=== PATIENT | male | born 2000 | race Caucasian/White ===

== ENCOUNTER 2021-11-16 09:09 | Outpatient (REF) | payer OTHER, SELFPAY ==
[2021-11-16 11:44] LABS: Basophils Absolute Auto 0.1 X10*3/uL (0.0-0.2); Basophils Percent Auto 0.5 % (0-2); Eosinophils Absolute Auto 0.2 X10*3/uL (0.0-0.4); Eosinophils Percent Auto 2.1 % (0-4); Hematocrit 46.2 % (42.0-52.0); Hemoglobin 14.9 g/dl (14.0-18.0); Imm Gran Abs Auto 0.02 X10*3/uL (0.00-0.03); Imm Gran Pct Auto 0.2 % (0.0-0.4); Lymphocytes Percent Auto 55.7 % (20-40); MANUAL DIFF FLAG SCAN; Mean Corpuscular HGB Conc 32.3 g/dl (31.0-36.0); Mean Corpuscular Hemoglobin 28.6 pg (27.0-33.0); Mean Corpuscular Volume 88.7 fL (80.0-98.0); Mean Platelet Volume 12.4 fL (9.4-12.4); Monocytes Absolute Auto 0.7 X10*3/uL (0.1-1.2); Monocytes Percent Auto 6.5 % (2-11); Neutrophils Absolute Auto 3.8 x10*3/uL (2.0-8.3); Platelet Count 257 X10*3/uL (160-400); Red Blood Count 5.21 X10*6/uL (4.60-5.80); Red Cell Distribution Width 12.7 % (11.0-16.0); SCAN SMEAR FLAG 1; White Blood Count 10.7 X10*3/uL (4.8-10.8)
[2021-11-16 12:07] LABS: SLIDE REVIEW VERIFIED
[2021-11-16 12:16] LABS: TSH reflex Free T4 0.98 uIU/mL (0.32-4.0)
[2021-11-16 12:39] LABS: Alanine Aminotransferase 44 U/L (0-40); Albumin Level 4.6 g/dL (3.5-5.0); Alkaline Phosphatase 92 U/L (39-117); Anion Gap 14 (12-20); Aspartate Amino Transferase 22 U/L (5-37); Bilirubin Total 0.5 mg/dL (0.0-1.0); Blood Urea Nitrogen 12 mg/dL (9-16); Calcium 9.6 mg/dL (8.4-10.2); Carbon Dioxide 29 mmol/L (22-29); Chloride 102 mmol/L (96-108); Cholesterol 167 mg/dL; Estimated Glomerular Filt Rate > 60; Glucose Fasting 97 mg/dL (60-99); HDL Cholesterol 13 mg/dL; LDL Cholesterol Calculated 121 mg/dl; Potassium 4.1 mmol/L (3.3-5.1); Sodium 141 mmol/L (135-145); Total Protein 7.5 g/dL (6.5-8.0); Triglycerides 166 mg/dL
[2021-11-16 12:59] LABS: Folate 6.7 ng/mL (> or = 4.0); Vitamin B12 366 pg/mL (200-900)
== END 2021-11-16 09:10 | disposition home or self-care (01) ==
LOC: HO.WFDLDS 09:09
PROVIDERS: Visit Provider Family Medicine
DX: Z00.00 Encounter for general adult medical examination without abnormal findings (principal); E53.8 Deficiency of other specified B group vitamins
CPT/HCPCS: 36415; 80053; 80061; 82607; 82746; 84443; 85025

== ENCOUNTER → 2022-02-14 12:51 | Outpatient (BNVA) | payer OTHER, SELFPAY | PROVIDERS: PCP Family Medicine; Visit Provider Nurse Practitioner Family | DX: G47.33 Obstructive sleep apnea (adult) (pediatric) (principal); G40.909 Epilepsy, unspecified, not intractable, without status epilepticus; G47.9 Sleep disorder, unspecified | CPT/HCPCS: 99202 ==

== ENCOUNTER 2024-09-09 14:09 | Outpatient (AMB) | payer OTHER, SELFPAY ==
--- NOTE | 2024-09-09 14:30 | MHC.PC.OV ---
Vital Signs 09/09/24 14:32 Height 5 ft 2 in Weight 181 lb 2 oz BMI 33.1 BP 124/66 Blood Pressure Location Lt brachial Position Sitting Respiration 18 Pulse 130 H Pulse Source Pulse Oximeter Temp 98.4 F Temp Source Oral Pulse Oximetry (%) 97 Oxygen Delivery Method Room Air Intake Visit Reasons: f/u for hearing loss, elevated transaminase level Allergies No Known Allergies [No Known Allergies*] Allergy (Verified 09/09/24 14:31) Medication List - Last Reconciled 09/09/24 by Reddy Elizalde MD cetirizine (Zyrtec) 10 mg PO DAILY 30 days levetiracetam 1,000 mg (10 mL) PO BID Tobacco use date assessed: 12/07/21 Dental Screening Dental Screen Date: 11/15/22 HPI f/u for hearing loss, elevated transaminase level HPI Details 24 y/o male presents today with complaints of hearing changes. Hx of intellectual disability. They note hearing changes and they feel like pt is not able to hear them at times. They note he does have small canals. Heart rate today 130p. [facility] Surgical History H/O wisdom tooth extraction Family History Father Mental health disorder Social History Housing: Apartment Patient Tobacco Use Status: Never used Tobacco e-Cigarette/Vaping Use: Never Used Second Hand Smoke Exposure: Yes service: No Current occupational status: disabled Current occupational exposures/hazards: No Cognitive needs: No Hearing needs: Yes Vision needs: Yes Questionnaire PHQ-9 Over the last 2 weeks, how often have you been bothered by any of the following problems? 1. Little interest or pleasure in doing things: not at all 2. Feeling down, depressed, or hopeless: not at all 3. Trouble falling or staying asleep, or sleeping too much: several days 4. Feeling tired or having little energy: several days 5. Poor appetite or overeating: not at all 6. Feeling bad about yourself - or that you are a failure or have let yourself or your family down: not at all 7. Trouble concentrating on things, such as reading the newspaper or watching television: not at all 8. Moving or speaking so slowly that other people could have noticed. Or the opposite - being so fidgety or restless that you have been moving around a lot more than usual: not at all 9. Thoughts that you would be better off or of hurting yourself in some way: not at all Total score: 2 Depression Screening Interpretation: Negative Depression Screening Done: Yes 84786 - PHQ-9 Billing: Yes Source: Developed by Drs. Pablito Hackett, Lesly Elkins, Johan Wiggins and colleagues, with an educational licha from [employer]. Thrive Questionnaire Date Thrive assessed: 09/03/24 I am a: Patient What is your living situation today?: I have a steady place to live Within the past 12 months, did the food you bought not last and you didn't have the money to get more?: Never true Within the past 12 months, did you worry whether your food would run out before you got money to buy more?: Never true Do you have trouble paying for medicines?: No Do you have trouble getting transportation to medical appointments?: No Do you have trouble paying your heating and electricity bill?: No Do you have trouble taking care of your child, family member or friend?: No Do you have trouble with day-to-day activities such as bathing, preparing meals, shopping, managing finances, etc.?: Yes Are you currently unemployed and looking for a job?: Yes Are you interested in more education?: Yes Please select the resources that you would like help with: None Currently or been in a relationship where the following occur: No concerns reported THRIVE Score: 0 AUDIT C Alcohol Use Questionnaire (AUDIT-C) 1. How often do you have a drink containing alcohol?: Never 2. How many drinks containing alcohol do you have on a typical day when you are drinking?: 1 or 2 3. How often do you have six or more drinks on one occasion?: Never Total Score: 0 JASON-7 AMB Questionnaire JASON-7 Date JASON - 7 assessed: 09/09/24 Feeling nervous, anxious, or on edge: 1 = Several days Not being able to stop or control worryin = Several days Worrying too much about different things: 0 = Not at all Trouble relaxin = Several days Being so restless that it is hard to sit still: 0 = Not at all Becoming easily annoyed or irritable: 0 = Not at all Feeling afraid as if something awful might happen: 0 = Not at all Total JASON-7 score (0-4 normal; 5-9 mild; 10-14 moderate; 15-21 severe): 3 Source: Developed by Drs. Pablito Hackett, Lesly Elkins, Johan Wiggins and colleagues, with an educational licha from [employer]. JASON-7 Assessment Billing JASON-7 Assessment Tool: JASON-7 Assessment 44367 Review of Systems Const Denies chills, Denies fatigue, Denies fever(s), Denies headache(s) and Denies weakness ENT Denies dizziness and Denies headache(s) Card Denies chest pain, Denies lightheadedness, Denies dyspnea and Denies other (Palpitations) Resp Denies cough, Denies dyspnea, Denies wheezing and Denies other ( shortness of breath) Musc Denies numbness and Denies tingling Neuro Denies dizziness, Denies headache(s), Denies numbness, Denies tingling, Denies paresthesias and Denies weakness Psych Denies anxiety and Denies depression Endo Denies fatigue Aller/Immun Denies wheezing Physical exam (Primary Care) Vital Signs: Last Vital Signs Temp 98.4 F 09/09/24 14:32 Pulse 130 H 09/09/24 14:32 Resp 18 09/09/24 14:32 BP 124/66 09/09/24 14:32 Pulse Ox 97 09/09/24 14:32 Oxygen Delivery Method Room Air 09/09/24 14:32 BMI result Body Mass Index 33.1 Tobacco/Smoking Status: Tobacco use Status Tobacco use date assessed 12/07/21 09/09/24 14:31 Patient Tobacco Use Status Never used Tobacco 09/09/24 14:31 e-Cigarette/Vaping Use Never Used 09/09/24 14:31 PHQ-9: PHQ-9 Score PHQ-9: Total score 2 09/09/24 14:31 Depression Screening Interpretation: Negative Thrive Assessment: Date of Thrive Assessment Date Thrive assessed 09/03/24 09/09/24 14:31 Currently or been in a relationship where the following occur: No concerns reported Const General: no acute distress and well developed Nutritional Appearance: well nourished Orientation/consciousness: patient oriented x3 HENMT Head: Yes normocephalic and Yes atraumatic Eyes General: appearance normal, both eyes and all related structures Pupils: Equal, round and reactive pupils present EOM: EOMs intact bilaterally Resp Effort & Inspection: normal respiratory effort Auscultation: clear to auscultation bilaterally Cardio Rate: tachycardic Rhythm: regular rhythm Heart sounds: S1 normal heart sound present, S2 normal heart sound present, no gallops, no murmurs and no rubs Neuro General: patient oriented x3 and gait normal Cranial nerves: Yes Equal, round and reactive pupils present Psych Affect: normal affect Coding Level of Care Code Est Pt Level 4 (84107) Diagnoses Hearing loss H91.90 Tachycardia R00.0 Elevated alanine aminotransferase (ALT) level R74.01 Additional Codes JASON-7 Assessment Billing - JASON-7 Assessment Tool: JASON-7 Assessment 56941 ([id number]) PHQ-9 - 15753 - PHQ-9 Billing: Yes ([id number]) Assessment & Plan Assessment & Plan (1) Hearing loss: Code(s): H91.90 - Unspecified hearing loss, unspecified ear Category: Medical Plan: Worsening?hearing,?bilateral?ears Does?have?small?ear?canals?bilaterally Also?has?complaints?of?rhinitis?and?nasal?congestion?and?allergies. Strong cigarette?smoke?odor?with?mom?in?room - mom?says?that?she?smokes.??This?can?be?an?underlying?cause?for?upper?respiratory?inflammation?and?can cause?mild?serous?otitis?which?is?seen?on?his?exam. Encouraged?have?a?filtration?and?avoid?particulate?matter?in?air?such?as?from?smoking. Will?check?audiology?and?refer?to?ENT (2) Tachycardia: Code(s): R00.0 - Tachycardia, unspecified Category: Medical Plan: Heart rate is?elevated?in?130s Rhythm?is?regular EKG: ?Sinus?tachycardia,?115?beats?per?minute,?normal?axis,?no?hypertrophy,?no?ST-T-wave?changes Patient?appears?dry.??He?is?also?on?levetiracetam?may?be?causing?further?dehydration.??He?also?had?the?flu?recently, however?he?has?had?hernia?at?prior?visit?as?well. Increase?hydration Check?labs Will?follow-up?at?next?visit (3) Elevated alanine aminotransferase (ALT) level: Code(s): R74.01 - Elevation of levels of liver transaminase levels Category: Medical Plan: History?of?elevated?transaminase?level Rechecking?this?with?next?blood?draw Orders: Orders AMB EKG-In Office Today R00.0 - Tachycardia, unspecified Comprehensive Recluse. Panel Fast Today Z00.00 - Encounter for general adult medical examination without abnormal findings Complete Blood Count Auto Diff Today Z00.00 - Encounter for general adult medical examination without abnormal findings Microalbumin, Random (w Creat) Today I10 - Essential (primary) hypertension Lipid Panel Today Z00.00 - Encounter for general adult medical examination without abnormal findings TSH reflex Free T4 Today Z00.00 - Encounter for general adult medical examination without abnormal findings UA CC w/rflx Micro + Cult Today Z00.00 - Encounter for general adult medical examination without abnormal findings Referrals Audiology Referral H91.90 - Unspecified hearing loss, unspecified ear Ear/Nose/Throat Referral H91.90 - Unspecified hearing loss, unspecified ear
[2024-09-09 14:32] VITALS: BP 124/66; PULSE 130; RESP 18; TEMP 36.9; O2SAT 97; BMI 33.1
--- OUTSIDE RECORDS SUMMARY | 2024-09-09 16:21 | XMS_ITS | Encounter Summary ---
Author Organization [employer] Address [address] [place] [address] [address] [place] [address] Care Team Providers Care Director Of Land Acquisition Name Role Phone Unavailable Primary Care Provider Unavailabl e Reason for Visit * Reason Comments Med Change Request Encounter Details Date Type Department Care Team (Late st Contact Info) Description 08/25/2022 Refill [facility]ULT [facility] [address] [place] [address] Delbert Mustafa DDS [address] [place] [address] Social History Tobacco Use Types Packs/Day Years Used Date Smoking Tobacco: Never Assessed Sex and Gender Information Value Date Recorded Sex Assigned at Male 03/13/2022 10:39 AM EDT Legal Sex Male 10:39 AM EDT Gender Identity Choose not to disclose 10:39 AM EDT Sexual Orientation Choose not to disclose 2021 10:39 AM EDT COVID-19 Exposure Response Date Recorded In the last 10 days, have yo u been in contact with someone who was confirmed or suspected to have Coronavirus/COVID-19? No / Unsure 08/25/2022 11:27 AM EDT documented as of this encounter Miscellaneous Notes * Telephone Encounter - Delbert Mustafa DDS - 09/11/2022 3:58 PM EDT Approving, but needs appt for additional refills. documented in this encounter Plan of Treatment Not on file documented as of this encounter Visit Diagnoses Not on filedocumented in this encounter
--- OUTSIDE RECORDS SUMMARY | 2024-09-09 16:21 | XMS_ITS | Clinical Summary ---
Author Organization [employer] Address [address] [place] [address] [address] [place] [address] Care Team Providers Care [employer] Name Role Phone Unavailable Primary Care Provider Unavailabl e Allergies No known active allergies Medications levETIRAcetam (Keppra) 100 MG/ML solution 9 mL 2 times daily. 09/07/2011 Active Social History Tobacco Use Types Packs/Day Years Used Date Smoking Tobacco: Never Assessed Sex and Gender Information Value Date Recorded Sex Assigned at Male 03/13/2022 10:39 AM EDT Legal Sex Male 10:39 AM EDT Gender Identity Choose not to disclose 10:39 AM EDT Sexual Orientation Choose not to disclose 2021 10:39 AM EDT Plan of Treatment Health Maintenance Due Date Last Done Comments Chlamydia and Gonorrhea Screening 2001 Dental Oral Exam 2001 Dental Prophylaxis 2001 Dental X-Ray: Full Mouth 2001 Depression Screening 2001 HIV Screening 2001 SDOH Screening 2001 Alcohol/Substance Use Screening 2013 Tobacco Screening 2013 HPV Vaccines (2 - 2-dose series) 03/10/2015 09/08/2014 Hepatitis A Vaccines (2 of 2 - 2-dose series) 03/10/2015 09/08/2014 Family Planning (PISQ) 2016 Hepatitis C Screening 07/16/2019 Hepatitis B Vaccines (1 of 3 - 19+ 3-dose series) 2020 Pneumococcal Vaccine: Pediatrics (0 to 5 Years) and At-Risk Patients (6 to 49) Years) (1 of 2 - PCV) 2020 10/21/2002, 01/20/2002, 2001, Additional history exists DTaP/Tdap/Td Vaccines (7 - Td or Tdap) 08/19/2022 08/19/2012, 08/02/2005, 01/22/2003, Additional history exists Dental X-Ray: Bitewings 08/27/2023 08/25/2022 COVID-19 Vaccine ( season) 2024 Influenza Vaccine (#1) 2024 3, 07/03/2012, 01/11/2011 Zoster Vaccines (1 of 2) 07/16/2051 RSV Patients and Patients Aged 60 years or older (1 - 1-dose 75+ series) 2076 Meningococcal Vaccine Aged Out 08/19/2012 No skyler lj eligible based on patient's age to complete this topic HIB Vaccines Aged Out No longer eligi ble based on patient's age to complete this topic IPV Vaccines Aged Out No longer eligi ble based on patient's age to complete this topic RSV under 20 months Aged Out No longe r eligible based on patient's age to complete this topic Rotavirus Vaccines Aged Out No longer eligible based on patient's age to complete this topic Procedures Procedure Name Priority Date/Time Associated Diagnosis Comments BITEWING - SINGLE RADIOGRAPHIC IMAGE Routine 08/25/2022 11:30 AM EDT from Last 3 Months or Most Recently Relevant to Health Maintenance Insurance [facility] MEDICAID STAND ADULT
== END 2024-09-09 15:19 | disposition home or self-care (01) ==
LOC: HO.HMCFM 14:09
PROVIDERS: PCP Family Medicine; Visit Provider Family Medicine
DX: H91.90 Unspecified hearing loss, unspecified ear (principal); R00.0 Tachycardia, unspecified; R74.01 Elevation of levels of liver transaminase levels

== ENCOUNTER → 2024-09-09 14:09 | Outpatient (BNVA) | payer OTHER, SELFPAY | PROVIDERS: PCP Family Medicine; Visit Provider Family Medicine | DX: H91.93 Unspecified hearing loss, bilateral (principal); R00.0 Tachycardia, unspecified; R74.01 Elevation of levels of liver transaminase levels | CPT/HCPCS: 96127; 99212 ==

== ENCOUNTER 2024-10-15 15:13 | Outpatient (REF) | payer OTHER, SELFPAY ==
--- OUTSIDE RECORDS SUMMARY | 2024-10-15 15:24 | XMS_ITS | Encounter Summary ---
Author Organization [employer] Address [address] [place] [address] [address] [place] [address] Care Team Providers Care [employer] Manager Name Role Phone Unavailable Primary Care Provider Unavailabl e Reason for Visit * Reason Comments Med Change Request Encounter Details Date Type Department Care Team (Late st Contact Info) Description 08/25/2022 Refill [facility] ADULT D[facility] [address] [place] [address] Delbert Mustafa DDS [address] [place] [address] Social History Tobacco Use Types Packs/Day Years [...]
== END 2024-10-15 15:14 | disposition home or self-care (01) ==
LOC: HO.SH 15:13
PROVIDERS: Visit Provider Family Medicine
DX: Z01.118 Encounter for examination of ears and hearing with other abnormal findings (principal); H61.23 Impacted cerumen, bilateral
CPT/HCPCS: 92567